=== PATIENT | male | born 1970 | race American Indian/Alaskan Native ===

== ENCOUNTER 2017-06-11 14:19 | Outpatient (CLI) | payer MEDICAID ==
--- NOTE | 2017-06-12 10:36 | Magnetic Resonance Report ---
MRI BRAIN WITHOUT CONTRAST: 06/11/17 14:19:00 CLINICAL: Seizure and dementia. COMPARISON: 01/28/16 TECHNIQUE: Axial diffusion, T1, T2, FLAIR, gradient echo T2*, and sagittal T1 sequences on a 1.5 Parris magnet. FINDINGS: Global enlargement of cerebral sulci and ventricles with a dramatic increase in size of ventricles and sulci compared to the previous exam. Atrophy and ventricular enlargement is slightly greater in the occipital lobes and there are new large confluent bilateral occipital lobe white matter hyperintensities on FLAIR. These hyperintensities also extend to involve the occipital cortex which is atrophied. A new right frontal lobe white matter lacunar infarct with a surrounding band of hyperintensity on FLAIR. Asymmetric hyperintensity of the right basal ganglia is less prominent than on the prior exam. The cerebellum is normal with no atrophy. Minimal hippocampal atrophy. No restricted diffusion. No mass or mass effect. No hemorrhage, edema or extra-axial collection. Normal pituitary and optic chiasm. The brainstem and cerebellum are normal. Intact vascular flow voids. Normal sinuses. The orbits, and soft tissues are normal. Normal calvarium and skull base. IMPRESSION: 1. 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 2. Minimal hippocampal atrophy. (Hippocampal atrophy is an almost universal finding in Alzheimer's disease). 3. A new right frontal lobe white matter lacunar infarct. 4. No evidence of acute/subacute infarct or hemorrhage.
== END 2017-06-11 14:20 | disposition home or self-care (01) ==
LOC: MRI 14:19
PROVIDERS: ATTEND Psychiatry & Neurology Neurology
DX: G40.309 Generalized idiopathic epilepsy and epileptic syndromes, not intractable, without status epilepticus (principal); I63.9 Cerebral infarction, unspecified; F03.90 Unspecified dementia, unspecified severity, without behavioral disturbance, psychotic disturbance, mood disturbance, and anxiety; G31.89 Other specified degenerative diseases of nervous system; I10 Essential (primary) hypertension
CPT/HCPCS: 70551